=== PATIENT | male | born 1980 | race Caucasian/White ===

== ENCOUNTER 2017-09-29 18:47 | Observation (INO) | payer OTHER ==
[~2017-09-29 18:47] MED LIST: DEXAMETHASONE SOD PHOSPHATE INJ 4 MG/1 ML VIAL ONE; KETOROLAC TROMETHAMINE 60 MG/2 ML SDV ONE; LIDOCAINE 2% INJ-PF (20 MG/ML) 2 ML AMPUL ONE; METOCLOPRAMIDE HCL INJ/PF 10 MG/2 ML SDV ONE; ONDANSETRON HCL INJ/PF 4 MG/2 ML SDV ONE
[2017-09-29] MEDS ORDERED: LIDOCAINE 1% INJ-PF (10 MG/ML) 30 ML SDV INJ ONE (19:11)
--- NOTE | 2017-09-29 19:11 | ER Document Report ---
ED General - General Chief Complaint: Skin Problem Stated Complaint: LEFT LEG PAIN, NAUSEA Time Seen by Provider: 09/29/17 18:57 Mode of Arrival: Ambulatory Information source: Patient Notes: 37-year-old male presents with complaints of abscess to left anterior calf for day duration. Patient notes a friend of him was giving him clindamycin, he notes that he tried to incise it with a clean new razor but since yesterday the area has worsened and is draining foul-smelling pus Patient denies any other concerns denies any fevers or chills denies any other medical problems TRAVEL OUTSIDE OF THE [place] IN LAST 30 DAYS: No - HPI Onset: Last week Onset/Duration: Persistent, Worse Quality of pain: Achy Severity: Mild Pain Level: 1 Associated symptoms: Other Exacerbated by: Denies Relieved by: Denies Similar symptoms previously: No Recently seen / treated by doctor: No - Related Data Allergies/Adverse Reactions: No Known Allergies Allergy (Verified 09/29/17 18:48) Past Medical History - Social History Smoking Status: Current Every Day Smoker Cigarette use (# per day): Yes Chew tobacco use (# tins/day): No Smoking Education Provided: No Frequency of alcohol use: None Drug Abuse: None Family History: None Patient has suicidal ideation: No Patient has homicidal ideation: No Renal/ Medical History: Denies: Hx Peritoneal Dialysis Past Surgical History: Reports: Hx Genitourinary Surgery - circumscised, Hx Oral Surgery - 3rd molars removed - Immunizations Hx Diphtheria, Pertussis, Tetanus Vaccination: No Review of Systems - Review of Systems Notes: REVIEW OF SYSTEMS: CONSTITUTIONAL : Denies fever, chills, or sweats. Denies recent illness. EENT: Denies eye, ear, throat, or mouth pain or symptoms. Denies nasal or sinus congestion or discharge. Denies throat, tongue, or mouth swelling or difficulty swallowing. CARDIOVASCULAR: Denies chest pain. Denies palpitations or racing or irregular heart beat. Denies ankle edema. RESPIRATORY: Denies cough, cold, or chest congestion. Denies shortness of breath, difficulty breathing, or wheezing. GASTROINTESTINAL: Denies abdominal pain or distention. Denies nausea, vomiting , or diarrhea. Denies blood in vomitus, stools, or per rectum. Denies black, tarry stools. Denies constipation. GENITOURINARY: Denies difficulty urinating, painful urination, burning, frequency, blood in urine, or discharge. MUSCULOSKELETAL: Denies back or neck pain or stiffness. Denies joint pain or swelling. SKIN: Abscess to left calf HEMATOLOGIC : Denies easy bruising or bleeding. LYMPHATIC: Denies swollen, enlarged glands. NEUROLOGICAL: Denies confusion or altered mental status. Denies passing out or loss of consciousness. Denies dizziness or lightheadedness. Denies headache. Denies weakness or paralysis or loss of use of either side. Denies problems with gait or speech. Denies sensory loss, numbness, or tingling. Denies seizures. PSYCHIATRIC: Denies anxiety or stress. Denies depression, suicidal ideation, or homicidal ideation. ALL OTHER SYSTEMS REVIEWED AND NEGATIVE. Dictation was performed using [employer] voice recognition software PHYSICAL EXAMINATION: GENERAL: Well-appearing, well-nourished and in no acute distress. HEAD: Atraumatic, normocephalic. EYES: Pupils equal round and reactive to light, extraocular movements intact, sclera anicteric, conjunctiva are normal. ENT: Nares patent, oropharynx clear without exudates. Moist mucous membranes. NECK: Normal range of motion, supple without lymphadenopathy LUNGS: Breath sounds clear to auscultation bilaterally and equal. No wheezes rales or rhonchi. HEART: Regular rate and rhythm without murmurs ABDOMEN: Soft, nontender, nondistended abdomen. No guarding, no rebound. No masses appreciated. Musculoskeletal: Left anterior medial abscess noted right tissue foul-smelling pus draining NEUROLOGICAL: Cranial nerves grossly intact. Normal speech, normal gait. Normal sensory, motor exams PSYCH: Normal mood, normal affect. SKIN: Large area of cellulitis around Physical Exam - Vital signs Vitals: Temp Pulse Resp BP Pulse Ox 97.9 F 71 14 115/72 100 09/29/17 18:54 09/29/17 18:54 09/29/17 18:54 09/29/17 18:54 09/29/17 18:54 Course - Re-evaluation Re-evalutation: 09/29/17 19:36 Patient's request I incised and drained bedside, extremely large amount of pus was noted, my concern is that the musculature has quite tissue as well as exploring, I did request Dr. Ovalle to evaluate and he believes the patient will require operating room incision drainage as well - Vital Signs Vital signs: Temp Pulse Resp BP Pulse Ox 97.9 F 71 14 115/72 100 09/29/17 18:54 09/29/17 18:54 09/29/17 18:54 09/29/17 18:54 09/29/17 18:54 Procedures - Incision and Drainage Left Leg Time completed: 19:30 Type: Complex Anesthetic type: 1% Lidocaine mL's of anesthetic: 5 Blade size: 11 I&D procedure: Sterile dressing applied Incision Method: Incision made by scalpel Amount/type of drainage: large amount of pus foul Discharge - Discharge Clinical Impression: Cellulitis and abscess of left leg Condition: Stable Disposition: ADMITTED OBSERVATION Admitting Provider: Surgicalist Unit Admitted: Surgical Floor
[2017-09-29] MEDS ORDERED: PIPERACILLIN/TAZOBACTAM 3.375 GM VIAL IV ONE (19:30)
[2017-09-29] MEDS ORDERED: VANCOMYCIN HCL INJ 1000 MG VIAL IV ONE (19:30)
[2017-09-29] MEDS ORDERED: NORMAL SALINE 1000 ML 1,000 ML IV ONE (19:36)
--- NOTE | 2017-09-29 19:55 | PDOC H&P ---
History of Present Illness Patient complains of: Left leg infection History of Present Illness: GABE HOLLIDAY is a 37 year old male Sent into the emergency department via ground rescue complaining of the left leg infection. The exact circumstances surrounding the development of this infection are unclear. Apparently the patient tried to drain the infection himself. He took some p.o. antibiotics given to him from a friend. He was seen in the emergency department where he underwent incision and drainage of a significant amount of pus by Dr. Chandler; the infection was felt to involve muscle. Surgery was consulted, patient was evaluated, advised admission for aggressive debridement, intravenous antibiotics. Past Medical History Medical History: None Past Surgical History Past Surgical History: Reports: Other - Circumcision Social History Smoking Status: Current Every Day Smoker Past Social History Note: Patient works as a graphics artist Family History Family History: None Parental Family History Reviewed: Yes Children Family History Reviewed: Yes Sibling(s) Family History Reviewed.: Yes Medication/Allergy Home Medications: Methocarbamol [Robaxin 750 mg Tablet] 750 mg PO ASDIR PRN #40 tablet 08/25/12 No Home Medications 1 08/25/12 Oxycodone HCl/Acetaminophen [Percocet 5-325 mg Tablet] 1 - 2 tab PO ASDIR PRN # 15 tablet 08/25/12 Allergies/Adverse Reactions: No Known Allergies Allergy (Verified 09/29/17 18:48) Review of Systems Eyes: ABSENT: visual disturbances Ears: ABSENT: hearing changes Cardiovascular: ABSENT: chest pain, dyspnea on exertion, edema, orthropnea, palpitations Respiratory: ABSENT: cough, hemoptysis Genitourinary: ABSENT: dysuria, hematuria Musculoskeletal: ABSENT: joint swelling Endocrine: ABSENT: cold intolerance, heat intolerance, polydipsia, polyuria Physical Exam Vital Signs: Temp Pulse Resp BP Pulse Ox 97.9 F 71 14 115/72 100 09/29/17 18:54 09/29/17 18:54 09/29/17 18:54 09/29/17 18:54 09/29/17 18:54 Intake & Output 09/28/17 09/29/17 09/30/17 06:59 06:59 06:59 Weight 61.3 kg General appearance: PRESENT: no acute distress Head exam: PRESENT: normocephalic Eye exam: PRESENT: EOMI Mouth exam: PRESENT: dry mucosa Neck exam: PRESENT: full ROM Respiratory exam: PRESENT: clear to auscultation margaux Cardiovascular exam: PRESENT: RRR Pulses: PRESENT: normal carotid pulses, normal radial pulses GI/Abdominal exam: PRESENT: other - No tenderness Rectal exam: PRESENT: deferred Extremities exam: PRESENT: other - Range of motion of foot limited left lower extremity, below the antecubital fossa the medial aspect is an erythematous necrotic central area of skin approximately 3 cm in diameter, surrounded by a large area of erythema and tenderness and swelling to the medial calf; small I& D site. Musculoskeletal exam: PRESENT: ambulatory Assessment & Plan - Diagnosis (1) Cellulitis and abscess of left leg Is this a current diagnosis for this admission?: Yes Plan: Acute, left lower extremity, refractory outpatient management and local I&D the emergency department; needs aggressive debridement Commendations: 1. Admit to surgical service, keep n.p.o., IV fluids intravenous antibiotics; take patient to the operating room tonight for aggressive debridement of skin, soft tissue, muscle. Patient may require a second look additional debridement. 2. Explained rationale to patient. I believe understands and agrees to proceed. (2) Smoker Is this a current diagnosis for this admission?: Yes - Time Time Spent: 30 to 50 Minutes Critical Time spent with patient: Less than 15 minutes Medications reviewed and adjusted accordingly: Yes Anticipated discharge: Home - Inpatient Certification Based on my medical assessment, after consideration of the patient's comorbidities, presenting symptoms, or acuity I expect that the services needed warrant INPATIENT care.: Yes I certify that my determination is in accordance with my understanding of Medicare's requirements for reasonable and necessary INPATIENT services [42 CFR 412.3e].: Yes Medical Necessity: Need For IV Fluids, Need for Pain Control, Need for IV Antibiotics, Need for Surgery
[2017-09-29] MEDS ORDERED: MIDAZOLAM 2 MG/2 ML INJ ONE (20:13)
[2017-09-29] MEDS ORDERED: KETAMINE HCL INJ 500 MG/10 ML VIAL ONE (20:13)
[2017-09-29] MEDS ORDERED: FENTANYL CITRATE INJ/PF 100 MCG/2 ML AMPUL ONE (20:13)
[2017-09-29] MEDS ORDERED: DEXMEDETOMIDINE INJ 80 MCG/20 ML VIAL IV ONE (20:14)
[2017-09-29] MEDS ORDERED: ACETAMINOPHEN 100 ML IV ONE (20:14)
[2017-09-29] MEDS ORDERED: PROPOFOL INJ 200 MG/20 ML VIAL IV ONE (20:14)
[2017-09-29] MEDS ORDERED: EPHEDRINE SULFATE INJ 50 MG/1 ML AMPULE ONE (20:14)
[2017-09-29] MEDS ORDERED: CEFAZOLIN INJ 1 GM VIAL ONE (21:13)
[2017-09-29] MEDS ORDERED: PROMETHAZINE HCL INJ 25 MG/1 ML VIAL IV PRN ×2 (21:25)
[2017-09-29] MEDS ORDERED: MEPERIDINE HCL/PF INJ 25 MG/1 ML DISP.SYRIN IV PRN (21:25)
[2017-09-29] MEDS ORDERED: MORPHINE SULFATE 10 MG/ML INJ IV PRN (21:25)
[2017-09-29] MEDS ORDERED: FENTANYL CITRATE INJ/PF 100 MCG/2 ML AMPUL IV PRN ×3 (21:25)
[2017-09-29] MEDS ORDERED: ONDANSETRON HCL INJ/PF 4 MG/2 ML SDV IV PRN ×2 (21:25→21:35)
[2017-09-29] MEDS ORDERED: DIPHENHYDRAMINE HCL 50 MG/ML VIAL IV PRN (21:25)
[2017-09-29] MEDS ORDERED: KETOROLAC TROMETHAMINE INJ/PF 30 MG/1 ML SDV IV PRN (21:35)
--- NOTE | 2017-09-29 21:43 | Operative Report ---
Operative Report DATE OF SURGERY: 09/29/17 PREOPERATIVE DIAGNOSIS: Septic left lower extremity with deep soft tissue infection POSTOPERATIVE DIAGNOSIS: Same with septic thrombosis of saphenous vein OPERATION: 1. Excisional debridement of skin, subcutaneous tissue, portion of saphenous vein lower extremity. 2. Washout of deep subcutaneous pocket medial aspect left lower extremity and packing of wound SURGEON: LINDA CRAIG ANESTHESIA: GA TISSUE REMOVED OR ALTERED: Skin subcutaneous tissue portion of saphenous vein all disposed of COMPLICATIONS: None ESTIMATED BLOOD LOSS: 20 cc INTRAOPERATIVE FINDINGS: See below PROCEDURE: Patient was seen in the preop holding area leg becki patient taken to the operating room where general anesthesia was induced via LMA. Patient left on stretcher left leg prepped and draped sterile fashion Surgical plan surgical timeout conducted. There was a 3-1/2-4 cm circular area of necrotic skin over the medial aspect of the left lower extremity just below the knee. We excised with a #10 blade. We also excised subcutaneous tissue. All tissue was disposed of. We got into a deep pocket in the subcutaneous space , superficial fascia and broke up loculations of pus extending approximately 10 cm distally and 5 cm proximally. Irrigation with 3 L of saline was Suspended in the midsection of the wound was the saphenous vein which was completely sclerotic for approximately 4 cm. We excised the portion of the saphenous vein and oversewed the proximal distal ends with a 2-0 Vicryl suture. The findings are significant for sclerosed, infected saphenous vein likely chronic. This allowed us open access to the deep subcutaneous pocket. Again we irrigated out the entire cavity thoroughly. We ensured that no additional devitalized tissue was left behind. we Wallace the operation was complete. The final wound was approximately 4 and half centimeters in diameter, circular in nature, with the elongated subcutaneous tunnel extending proximally and distally. Wound packed with the entire container of 1/2 inch iodoform packing. 4 x 4's Kerlix applied. Patient tolerated the procedure well, extubated and taken to recovery in stable condition.
[2017-09-29] MEDS ORDERED: PIPERACILLIN/TAZOBACTAM 4.5 GM VIAL IV PRN (21:54)
[2017-09-29] MEDS ORDERED: PIPERACILLIN/TAZOBACTAM 4.5 GM VIAL IV SCH (22:00)
[2017-09-29] MEDS ORDERED: PIPERACILLIN SODIUM/TAZOBACTAM 4.5 GM in NORMAL SALINE 100 ML IV SCH (22:00)
[2017-09-29 23:26] LABS: ABSOLUTE BASOPHILS # (AUTO) 0.1 10^3/uL (0.0-0.2); ABSOLUTE EOSINOPHILS # (AUTO) 0.2 10^3/uL (0.0-0.6); ABSOLUTE LYMPHOCYTES (AUTO) 0.9 10^3/uL (0.5-4.7); ABSOLUTE MONOCYTES (AUTO) 0.4 10^3/uL (0.1-1.4); ABSOLUTE NEUT (AUTO) 10.8 10^3/uL (1.7-8.2); BASOPHILS % (AUTO) 0.6 % (0-2); EOSINOPHILS % (AUTO) 1.6 % (0-6); HEMATOCRIT 37.2 % (37.9-51.0); LYMPHOCYTES % (AUTO) 7.5 % (13-45); MEAN CORPUSCULAR HEMOGLOBIN 31.6 pg (27.0-33.4); MEAN CORPUSCULAR VOLUME 91 fl (80-97); PLATELET COUNT 348 10^3/uL (150-450); RED BLOOD COUNT 4.11 10^6/uL (4.35-5.55); RED CELL DISTRIBUTION WIDTH 13.2 % (11.5-14.0); SEGMENTED NEUTROPHILS % (AUTO) 87.3 % (42-78); TOTAL CELLS COUNTED % (AUTO) 100 %; WHITE BLOOD COUNT 12.3 10^3/uL (4.0-10.5)
[2017-09-29 23:53] LABS: ALANINE AMINOTRANSFERASE 37 U/L (21-72); ALBUMIN 3.4 g/dL (3.5-5.0); ALKALINE PHOSPHATASE 73 U/L (38-126); ANION GAP 9 (5-19); ASPARTATE AMINO TRANSFERASE 24 U/L (17-59); BILIRUBIN,DIRECT 0.4 mg/dL (0.0-0.4); BILIRUBIN,TOTAL 0.5 mg/dL (0.2-1.3); BLOOD UREA NITROGEN 27 mg/dL (7-20); CALCIUM 8.9 mg/dL (8.4-10.2); CARBON DIOXIDE 28 mmol/L (22-30); CHLORIDE 100 mmol/L (98-107); GLUCOSE 107 mg/dL (75-110); POTASSIUM 3.9 mmol/L (3.6-5.0); SODIUM 136.5 mmol/L (137-145); TOTAL PROTEIN 6.6 g/dL (6.3-8.2)
[2017-09-30] MEDS ORDERED: ACETAMINOPHEN INJ/PF 1000 MG/100 ML SDV IV SCH
[2017-09-30] MEDS: RINGERS SOLUTION,LACTATED 1,000 ML IV PRN ×2 (08:14→20:37)
[2017-09-30] MEDS: ACETAMINOPHEN 100 ML IV SCH ×3 (08:15→20:37)
[2017-09-30] MEDS ORDERED: PIPERACILLIN SODIUM/TAZOBACTAM 4.5 GM in NORMAL SALINE 100 ML IV SCH (10:00)
[2017-09-30] MEDS: TRAMADOL HCL 50 MG TABLET PO PRN ×2 (16:45→23:47)
--- NOTE | 2017-09-30 16:50 | PDOC PROGRESS REPORT ---
Subjective Progress Note for:: 09/30/17 Reason For Visit: DEEP SOFT TISSUE INFECTION LEFT LEG Physical Exam Vital Signs: Temp Pulse Resp BP Pulse Ox 97.5 F 61 16 109/63 97 09/30/17 02:40 09/30/17 02:40 09/30/17 02:40 09/30/17 02:40 09/30/17 02:40 Intake & Output 09/29/17 09/30/17 10/01/17 06:59 06:59 06:59 Intake Total 2600 Output Total 2460 Balance 140 Weight 61.1 kg Results Laboratory Results: 09/29/17 23:13 09/29/17 23:13 09/29/17 09/29/17 23:13 23:13 WBC 12.3 H RBC 4.11 L Hgb 13.0 L Hct 37.2 L MCV 91 MCH 31.6 MCHC 35.0 RDW 13.2 Plt Count 348 Seg Neutrophils % 87.3 H Lymphocytes % 7.5 L Monocytes % 3.0 Eosinophils % 1.6 Basophils % 0.6 Absolute Neutrophils 10.8 H Absolute Lymphocytes 0.9 Absolute Monocytes 0.4 Absolute Eosinophils 0.2 Absolute Basophils 0.1 Sodium 136.5 L Potassium 3.9 Chloride 100 Carbon Dioxide 28 Anion Gap 9 BUN 27 H Creatinine 0.69 Est GFR ( Amer) > 60 Est GFR (Non-Af Amer) > 60 Glucose 107 Calcium 8.9 Total Bilirubin 0.5 AST 24 ALT 37 Alkaline Phosphatase 73 Total Protein 6.6 Albumin 3.4 L Assessment & Plan - Diagnosis (1) Cellulitis and abscess of left leg Is this a current diagnosis for this admission?: Yes - Plan Summary Plan Summary: This is a 37-year-old male status post incision and drainage of a left leg abscess. I removed his packing at the bedside today. There is no further purulence or necrotic tissue. I have repacked his wound and dressed it. Continue antibiotics. Likely discharge tomorrow.
[2017-09-30] MEDS: KETOROLAC TROMETHAMINE 10 MG TABLET PO PRN (20:37)
[2017-09-30] MEDS: DOXYCYCLINE HYCLATE 100 MG TABLET PO SCH (20:39)
[2017-10-01] MEDS: ACETAMINOPHEN 100 ML IV SCH ×2 (03:21→08:05)
--- NOTE | 2017-10-01 05:31 | PDOC DISCHARGE SUMMARY ---
General - Admit/Disc Date/PCP Admission Date/Primary Care Provider: 09/29/17 20:00 Discharge Date: 10/01/17 - Discharge Diagnosis (1) Cellulitis and abscess of left leg Is this a current diagnosis for this admission?: Yes - Additional Information Resuscitation Status: Full Code Discharge Diet: As Tolerated Discharge Activity: Slowly Increase Activity Prescriptions: Doxycycline Hyclate [Vibramycin 100 mg Tablet] 100 mg PO Q12 #10 tablet Tramadol HCl [Ultram 50 mg Tablet] 50 mg PO Q4HP PRN #40 tablet PRN Reason: Home Medications: Doxycycline Hyclate [Vibramycin 100 mg Tablet] 100 mg PO Q12 #10 tablet Tramadol HCl [Ultram 50 mg Tablet] 50 mg PO Q4HP PRN #40 tablet 10/01/17 History of Present Illness History of Present Illness: GABE HOLLIDAY is a 37 year old male admitted with a large abscess of the left lower extremity. The patient was begun on antibiotics and taken to the operating room for definitive surgical treatment. Hospital Course Hospital Course: The patient was taken to the operating room, where incision and drainage of the large lower extremity abscess was performed. The patient tolerated this well. Patient was then sent to the floor in stable condition. The patient remained afebrile. He began ambulating and tolerating a diet. By 10/01/2017, the patient had reached maximal hospital benefit and was fit for discharge. Physical Exam Vital Signs: Temp Pulse Resp BP Pulse Ox 98.6 F 79 16 113/56 L 98 09/30/17 23:24 09/30/17 23:24 09/30/17 23:24 09/30/17 23:24 09/30/17 23:24 Intake & Output 09/29/17 09/30/17 10/01/17 06:59 06:59 06:59 Intake Total 2600 1880 Output Total 2460 Balance 140 1880 Weight 61.1 kg Results Laboratory Results: 09/29/17 23:13 09/29/17 23:13 Qualifiers - * PATIENT BEING DISCHARGED WITH ANY OF THE FOLLOWING DIAGNOSIS: No Plan Time Spent: Less than 30 Minutes
[2017-10-01 07:58] VITALS: BP 112/72
[2017-10-01] MEDS: DOXYCYCLINE HYCLATE 100 MG TABLET PO SCH (08:15)
[2017-10-01] MEDS: KETOROLAC TROMETHAMINE 10 MG TABLET PO PRN (08:15)
[2017-10-01] MEDS: TRAMADOL HCL 50 MG TABLET PO PRN (08:16)
== END 2017-10-01 08:47 | disposition home or self-care (01) ==
LOC: ER 18:47 → EH 20:00 → 4N 22:31
PROVIDERS: ATTEND Surgery
PROC: 0H9LXZZ Drainage of Left Lower Leg Skin, External Approach (ICD-10-PCS; 2017-09-29)
PROC: 0JBP0ZZ Excision of Left Lower Leg Subcutaneous Tissue and Fascia, Open Approach (ICD-10-PCS; principal; 2017-09-29 21:15)
DX: L03.116 Cellulitis of left lower limb (principal); L02.416 Cutaneous abscess of left lower limb; I82.812 Embolism and thrombosis of superficial veins of left lower extremity; F17.210 Nicotine dependence, cigarettes, uncomplicated
CPT/HCPCS: 99285; 36415; 87040; 87070; 87205; 85025; 87075; 87077; 80053; 87186; 11000; 10061; G0378 ×3; J2250; J0690; J1100; J1885 ×2; J3010; J2765; J2405; J7120; J3490 ×3; J2704; J2543; J0131 ×2; 400

== ENCOUNTER 2017-12-20 15:51 | Emergency (ER) | payer OTHER ==
--- NOTE | 2017-12-20 17:10 | ER Document Report ---
ED Psych Disorder / Suicide <JEANNINEMARQUITAJOSÉ MIGUEL - Last Filed: 12/20/17 21:21> <ELIADAREKI - Last Filed: 12/21/17 10:00> - General Mode of Arrival: Ambulatory Information source: Patient TRAVEL OUTSIDE OF THE [place] IN LAST 30 DAYS: No - HPI Patient complains to provider of: Hallucinating. No: Homicidal plan, Suicidal attempt Onset: This afternoon Quality of pain: No pain Suicide Risk Factors: Hallucinations, Lack of social support, Substance abuse Situational problems related to: Lost job, Other - Homeless Associated symptoms: Auditory hallucinations, Tangential speech, Visual hallucinations Similar symptoms previously: No Recently seen / treated by doctor: No <KURT VILLAR - Last Filed: 12/21/17 10:22> - General Chief Complaint: Insect Bite Stated Complaint: POSSIBLE BUG BITES Time Seen by Provider: 12/20/17 16:44 Notes: Patient presents stating that he has been overweight for the past 8 days and is unable to sleep. Patient states he does have a history of ADD in an attempt to treat his insomnia he took methamphetamine yesterday and today. Patient states that he has been having visual hallucinations in which she has been seeing spirits that he felt were chasing him so he was hiding in the mos[place]. While he was in the mos[place] he reports multiple insect bites. Patient states he has been having auditory hallucinations as well in which he just hears vague sounds. Patient denies any suicidal or homicidal ideation. Patient states that while he was in prison for 1 week he feels that he had detox from Suboxone which was partly causing his insomnia. Patient states that he is concerned that he may have schizophrenia although he has never been diagnosed with this in the past. Patient is currently homeless as a result of his recent incarceration. (KURT VILLAR) - Related Data Allergies/Adverse Reactions: No Known Allergies Allergy (Verified 12/20/17 15:55) Past Medical History - General Information source: Patient - Social History Smoking Status: Current Every Day Smoker Drug Abuse: Methamphetamine Occupation: None Lives with: Homeless Family History: None Patient has suicidal ideation: Yes Patient has homicidal ideation: No Renal/ Medical History: Denies: Hx Peritoneal Dialysis Psychiatric Medical History: Reports: Hx Attention Deficit Hyperactivity Disorder Past Surgical History: Reports: Hx Genitourinary Surgery - circumscised, Hx Oral Surgery - 3rd molars removed, Other - Circumcision - Immunizations Hx Diphtheria, Pertussis, Tetanus Vaccination: No <KURT VILLAR - Last Filed: 12/21/17 10:22> Review of Systems - Review of Systems Constitutional: No symptoms reported. denies: Fever, Recent illness EENT: No symptoms reported Cardiovascular: No symptoms reported Respiratory: No symptoms reported Gastrointestinal: No symptoms reported. denies: Vomiting Genitourinary: No symptoms reported Male Genitourinary: No symptoms reported Musculoskeletal: No symptoms reported Skin: No symptoms reported Hematologic/Lymphatic: No symptoms reported Neurological/Psychological: Hallucinations, Sensory change. denies: Homicidal ideation, Headaches, Suicidal ideation <KURT VILLAR - Last Filed: 12/21/17 10:22> Physical Exam - General General appearance: Appears well, Alert In distress: None - HEENT Head: Normocephalic Eyes: Normal Conjunctiva: Normal Nasal: Normal Mouth/Lips: Normal Mucous membranes: Normal Neck: Normal, Supple. No: Lymphadenopathy - Respiratory Respiratory status: No respiratory distress Chest status: Nontender Breath sounds: Normal Chest palpation: Normal - Cardiovascular Rhythm: Regular Heart sounds: S1 appreciated, S2 appreciated Murmur: No - Abdominal Inspection: Normal Distension: No distension Bowel sounds: Normal Tenderness: Nontender Organomegaly: No organomegaly - Back Back: Normal, Nontender. No: CVA tenderness - Extremities General upper extremity: Normal inspection, Normal ROM General lower extremity: Normal inspection, Normal ROM - Neurological Neuro grossly intact: Yes Esther Coma Scale Eye Opening: Spontaneous Esther Coma Scale Verbal: Oriented Maize Coma Scale Motor: Obeys Commands Maize Coma Scale Total: 15 - Psychological Associated symptoms: Unable to sleep, Visual hallucinations. No: Uncooperative - Skin Skin Temperature: Warm Skin Moisture: Dry Skin Color: Normal <KURT VILLAR - Last Filed: 12/21/17 10:22> - Vital signs Vitals: Temp Pulse Resp BP Pulse Ox 98.9 F 100 16 124/82 100 12/20/17 16:01 12/20/17 16:01 12/20/17 16:01 12/20/17 16:01 12/20/17 16:01 Course - Laboratory Result Diagrams: 12/20/17 18:50 12/20/17 18:50 <JOSÉ MIGUEL DONALDSON - Last Filed: 12/20/17 21:21> - Laboratory Result Diagrams: 12/20/17 18:50 12/20/17 18:50 <BOO RODRIGEZ - Last Filed: 12/21/17 10:00> - Laboratory Result Diagrams: 12/20/17 18:50 12/20/17 18:50 <KURT VILLAR - Last Filed: 12/21/17 10:22> - Re-evaluation Re-evalutation: 12/20/17 21:21 On reevaluation patient denying any complaints other than wanting to sleep. He was given Vistaril. He is denying homicidal or suicidal ideations. Vital signs generally unremarkable, CBC, chemistry, urinalysis generally unremarkable except for elevated BUN and elevated specific gravity, patient was given IV fluids. He remains here as a voluntary hold pending mental health evaluation in the morning. (JOSÉ MIGUEL DONALDSON) 12/20/17 19:16 Report and handoff given to José Miguel NEELY 12/21/17 07:07 Patient medically clear awaiting mental health evaluation (KURT VILLAR) - Vital Signs Vital signs: Temp Pulse Resp BP Pulse Ox 98.2 F 88 20 119/76 98 12/21/17 05:38 12/21/17 05:38 12/21/17 05:38 12/21/17 05:38 12/21/17 05:38 - Laboratory Laboratory results interpreted by me: 12/20/17 12/20/17 12/20/17 17:20 18:50 18:50 WBC 11.2 H RDW 15.0 H BUN 36 H Urine Protein 30 H Urine Ketones 20 H Urine Urobilinogen 2.0 H Salicylates < 1.0 L Acetaminophen < 10 L Discharge <JOSÉ MIGUEL DONALDSON - Last Filed: 12/20/17 21:21> <BOO RODRIGEZ - Last Filed: 12/21/17 10:00> <KURT VILLAR - Last Filed: 12/21/17 10:22> - Discharge Clinical Impression: Visual hallucinations, Substance abuse Insomnia Qualifiers: Insomnia type: unspecified Qualified Code(s): G47.00 - Insomnia, unspecified Condition: Stable Disposition: HOME, SELF-CARE Forms: Smoking Cessation Education
[2017-12-20 17:53] LABS: APPEARANCE,URINE SLIGHTLY-CLOUDY; BILIRUBIN,URINE NEGATIVE (NEGATIVE); COLOR,URINE YELLOW; GLUCOSE, URINE NEGATIVE (NEGATIVE); KETONES,URINE 20 mg/dL (NEGATIVE); LEUKOCYTE ESTERASE,URINE NEGATIVE (NEGATIVE); NITRITE,URINE NEGATIVE (NEGATIVE); PROTEIN,URINE 30 mg/dL (NEGATIVE); URINE SPECIFIC GRAVITY 1.031
[2017-12-20 18:03] LABS: URINE BARBITURATES SCREEN NEGATIVE; URINE BENZODIAZEPINES SCREEN NEGATIVE; URINE COCAINE SCREEN NEGATIVE; URINE MARIJUANA (THC) SCREEN UNCONFIRMED POSITIVE; URINE METHADONE SCREEN NEGATIVE; URINE PHENCYCLIDINE SCREEN NEGATIVE
[2017-12-20] MEDS ORDERED: NORMAL SALINE 1000 ML 1,000 ML IV ONE (18:33)
[2017-12-20 19:06] LABS: ABSOLUTE BASOPHILS # (AUTO) 0.1 10^3/uL (0.0-0.2); ABSOLUTE LYMPHOCYTES (AUTO) 2.8 10^3/uL (0.5-4.7); ABSOLUTE NEUT (AUTO) 7.4 10^3/uL (1.7-8.2); BASOPHILS % (AUTO) 0.6 % (0-2); EOSINOPHILS % (AUTO) 0.1 % (0-6); HEMATOCRIT 43.7 % (37.9-51.0); HEMOGLOBIN 14.8 g/dL (13.5-17.0); MEAN CORPUSCULAR HEMOGLOBIN 32.2 pg (27.0-33.4); MEAN CORPUSCULAR HGB CONC 33.9 g/dL (32.0-36.0); MEAN CORPUSCULAR VOLUME 95 fl (80-97); MONOCYTES % (AUTO) 8.6 % (3-13); PLATELET COUNT 319 10^3/uL (150-450); SEGMENTED NEUTROPHILS % (AUTO) 65.7 % (42-78); TOTAL CELLS COUNTED % (AUTO) 100 %; WHITE BLOOD COUNT 11.2 10^3/uL (4.0-10.5)
[2017-12-20 19:23] LABS: ALANINE AMINOTRANSFERASE 35 U/L (21-72); ALBUMIN 4.7 g/dL (3.5-5.0); ALKALINE PHOSPHATASE 69 U/L (38-126); ANION GAP 13 (5-19); ASPARTATE AMINO TRANSFERASE 38 U/L (17-59); BILIRUBIN,DIRECT 0.4 mg/dL (0.0-0.4); BILIRUBIN,TOTAL 1.3 mg/dL (0.2-1.3); BLOOD UREA NITROGEN 36 mg/dL (7-20); CALCIUM 9.6 mg/dL (8.4-10.2); CARBON DIOXIDE 26 mmol/L (22-30); CHLORIDE 105 mmol/L (98-107); GLUCOSE 85 mg/dL (75-110); POTASSIUM 4.2 mmol/L (3.6-5.0); SODIUM 144.2 mmol/L (137-145)
[2017-12-20 19:26] LABS: ACETAMINOPHEN < 10 ug/mL (10-30); ALCOHOL < 10 mg/dL (NONE DETECTED); SALICYLATE < 1.0 mg/dL (2.0-20.0)
[2017-12-20] MEDS ORDERED: HYDROXYZINE PAMOATE 25 MG CAPSULE PO ONE (20:49)
--- NOTE | 2017-12-20 22:48 | EKG REPORT ---
SEVERITY:- NORMAL ECG - SINUS RHYTHM : Confirmed by: Ameya Pace MD 20-Dec-2017 22:48:15
[2017-12-21 05:39] VITALS: BP 119/76
--- NOTE | 2017-12-21 10:00 | ER Document Report ---
Doctor's Note Notes: 12/21/17 09:59 This 37-year-old man presented for evaluation after being let go from half-way, he subsequently was homeless and had no way to obtain money began to panic then used methamphetamine at which time he thought he might be being followed as a result presented for help. Believe that this patient is safe for discharge at this time with follow-up, he will avoid methamphetamine use moving forward, is not actively suicidal not actively hallucinating and has no desire to harm anyone else. We will plan for this patient be discharged. We will give a brief prescription for Atarax to help with anxiety. 12/21/17 10:38 (REBECCA CRUZ) Discharge - Discharge Clinical Impression: Visual hallucinations, Substance abuse Insomnia Qualifiers: Insomnia type: unspecified Qualified Code(s): G47.00 - Insomnia, unspecified Condition: Stable Disposition: HOME, SELF-CARE Additional Instructions: You were seen in the ED and evaluated by the medical and Behavioral Health Teams for hallucinations and determined to be appropriate for discharge at this time. You are recommended to follow up with [facility] upon discharge for assistance in obtaining substance abuse treatment and the local homeless alf. .Hallucinations You seem to be having hallucinations. Hallucinations are seeing, hearing, or feeling things that don't exist. These symptoms commonly occur with drug abuse and schizophrenia. Drugs like PCP, LSD, MDMA, peyote, and "psychedelic mushrooms" can cause frightening hallucinations. Users of methamphetamine or crack cocaine often see and feel bugs crawling on their skin. Patients with schizophrenia may hear voices that no one else can hear. The delusions of schizophrenia often involve conspiracies or relationships that are not real. When symptoms are due to drug abuse, the mental state usually improves as the drug wears off. Someone you trust should be with you until you are better, to protect you and calm your fears. Tranquilizer medicine is helpful at controlling hallucinations, anxiety, and deluded thoughts. Get a proper diet and enough sleep. Most patients do very well when they get proper medical treatment and social support. You should return at once if your symptoms get worse, if you are having suicidal thoughts or thoughts about hurting others, or if you feel that you are in danger. AMPHETAMINE / METHAMPHETAMINE ABUSE: Amphetamines are addicting stimulants. Amphetamines overstimulate the nervous system and give a false feeling of power and mastery. These drugs may be obtained as prescription pills for weight loss, narcolepsy, or attention- deficit disorder. More often they're bought as an illegal street drug, methamphetamine (crank, crystal, speed). Using amphetamines repeatedly can lead to serious medical problems including malnutrition, severe depression, and paranoia. It can take increasing amounts to feel good. Eventually, there will be a "burn out." When you go off amphetamines there is a period of depression that may last for weeks or even months. High doses of amphetamines can cause seizures, confusion, hallucinations, delusions, high blood pressure, muscle damage, heart damage, or sudden . Many times these deadly complications occur even with "normal" doses. Injection of amphetamines is risky for developing abscesses, endocarditis ( heart infection), pneumonia, and AIDS. Withdrawal from amphetamines often causes anxiety, depression, and drug cravings. Some users become paranoid and psychotic. There may be cramps, nausea , and vomiting. Many treatment programs are available, but you must make the decision to quit. Medication can be prescribed to control the symptoms of amphetamine toxicity (beta blockers or benzodiazepines). Withdrawal symptoms may require tranquilizers. FOLLOW-UP CARE: If you have been referred to a physician for follow-up care, call the physician s office for an appointment as you were instructed or within the next two days. If you experience worsening or a significant change in your symptoms, notify the physician immediately or return to the Emergency Department at any time for re-evaluation. Prescriptions: Hydroxyzine HCl [Atarax 25 mg Tablet] 1 - 2 tab PO QID #25 tablet Forms: Smoking Cessation Education
--- NOTE | 2017-12-21 12:21 | PSYCHOLOGICAL NOTE ---
Psych Note - Psych Note Psych Note: Reason for Consult: hallucinations Consent for permissions: Harika Jones, Patient presents to ED with complaints of insect bites after being in the [place]. states currently homeless and recently in [facility]. Patient states upon me entering the room that he wants "somebody to fix the chemical imbalance in his head". When asked to explain further patient states that he often has trouble sleeping and had "trouble paying attention when he was in the 3rd grade". When asked if he had thoughts of wanting to kill himself , he said "everybody thinks about it at one time or another". However, patient denied that he had thoughts of suicide or homicide. Patient could not remember the last time he thought about any plans to harm himself. Patient did not have a plan, intent and does not have any access to weapons. Patient's thoughts were organized and linear and well directed. Patient admitted that he did take meth about one hour before he got to the hospital. Patient states that in about 20 minutes he felt like spirits were chasing him into the mos[place] and that is how he thought that he got the bug bites. Patient denies that he is presently being chased or hearing voices. This Clinician confirmed with the nurse that there were no bug bites. Patient states that he only took the meth because he could not find any adderall on the street. Patient realizes that these substances are not good for him and interested in treatment. Patient was previously staying in the [facility] in [place] working odd jobs to pay for it. However, he was [place] [facility] [place] a [place] for [facility]assing and could not work. Patient states that he has a 5 year old daughter that lives with the maternal aunt. Patient states the Mom from complications with diabetes. Patient states that his priority right now is his homelessness Clinician gave the patient contact information for the local homeless fci and [facility] to assist with the substance abuse treatment. A voicemail message was left for collateral, Harika Jones at [phone]. Patient is alert and oriented to person, place, time and circumstance. Patient' s mood is euthymic. Patient denies suicidal or homicidal ideation, intent or plan. Patient's thought process is organized and linear. Conversational speech was within normal rate, tone, and prosody. Eye contact was well maintained. Intellectual abilities appear to be in the average range. Attention and concentration are fair. Insight, judgment, impulse control are fair. Patient presents with an intact reality base. No hallucinations. 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 Patient is currently experiencing homelessness and previously incarcerated. Patient admitted to taking some meth about one hour before he was at the hospital. Patient states that in about 20 minutes he felt like spirits were chasing him into the mos[place]. Patient is interested in getting assistance with his substance abuse. Patient was given resource information to include [facility] and the local homeless fci. Dr. Bethea was consulted and the care management this patient; attending physician is agreement with her conditions and disposition.
== END 2017-12-21 11:09 | disposition home or self-care (01) ==
LOC: ER 15:51
DX: F15.10 Other stimulant abuse, uncomplicated (principal); G47.00 Insomnia, unspecified; R44.1 Visual hallucinations; Z59.0 Homelessness; F41.9 Anxiety disorder, unspecified; F17.200 Nicotine dependence, unspecified, uncomplicated
CPT/HCPCS: 36415; 80053; 80307; 81001; 85025; 93005; 93010; 99284